=== PATIENT | male | born 1995 | race Caucasian/White ===

== ENCOUNTER 2025-07-08 22:51 | Emergency (ER) | payer OTHER, SELFPAY ==
--- NOTE | ~2025-07-08 | XR_ITS ---
Examination: XR chest 1V portable Clinical History: CLARITA Comparison: None Technique: Portable AP Findings: Heart size normal. Lungs clear. No acute bony abnormality. IMPRESSION: 1. No acute cardiopulmonary findings given portable technique. Reviewed, dictated and finalized at location [facility]
[2025-07-08 23:41] VITALS: BP 121/68; PULSE 84; RESP 18; TEMP 37.2; O2SAT 97
[2025-07-09 03:13] LABS: Influenza A QL RT-PCR Negative (Negative); Influenza B QL RT-PCR Negative (Negative); RSV RNA, RT-PCR Negative (Negative); SARS-CoV-2 RNA PCR Negative (Negative)
--- NOTE | 2025-07-09 03:20 | ED.SOB ---
HPI - SOB/Dyspnea General Chief Complaint: Shortness of Breath/Dyspnea Stated Complaint: Difficulty breathing Time Seen by Provider: 07/09/25 02:16 History of Present Illness HPI Narrative: 30-year-old otherwise healthy male presenting to the emergency department with shortness of breath. He describes the complaint as a burning with deep inhalation. States that he has had this symptom on off for last day. No sick contacts and a mild cough. Denies any fever chills. Denies any smoking history of vaping history. No chest pain, nausea, vomiting, fever, chills. States he had a sore throat as well. Was otherwise in his normal state of health recently. Has not tried any symptom controlling medications. No history of asthma or COPD. No history of lung issues in the past. No sick contacts at home. Related Data Allergies Allergy/AdvReac Type Severity Reaction Status Date / Time ADHESIVE BANDAGE Allergy Mild Uncoded 07/13/16 01:00 Review of Systems Review of Systems: As reviewed above in HPI All systems reviewed & are unremarkable except as noted in HPI and below Exam Narrative: GENERAL: [Well-appearing, well-nourished, and in no acute distress.] HEAD: [Normocephalic, atraumatic.] EYES: [PERRLA and EOMI.] ENT: Nares clear, no rhinorrhea or epistaxis. Mucous membranes moist. NECK: Supple. CHEST: [Clear to auscultation. No respiratory distress.] HEART: [Regular rate and rhythm]. No murmur heard. [Normal peripheral pulses.] ABDOMEN: [Soft, nondistended], [nontender], [No rigidity or guarding] EXTREMITIES: Normal range of motion. [No edema.] SKIN: Warm, dry, no rash. NEURO: [No focal deficits]. Alert and oriented [x3.] PSYCH: [Normal mood and affect.] Course Vital Signs Vital signs: Vital Signs Temperature 37.2 C 07/08/25 23:41 Pulse Rate 84 07/08/25 23:41 Respiratory Rate 18 07/08/25 23:41 Blood Pressure 121/68 07/08/25 23:41 Pulse Oximetry 97 07/08/25 23:41 Temperature 36.7 C 07/09/25 03:51 Pulse Rate 82 07/09/25 03:51 Respiratory Rate 18 07/09/25 03:51 Blood Pressure 124/70 07/09/25 03:51 Pulse Oximetry 100 07/09/25 03:51 [facility] Narrative Medical decision making narrative: 30-year-old otherwise healthy male presenting to the emergency department with shortness of breath. He describes the complaint as a burning with deep inhalation. States that he has had this symptom on off for last day. No sick contacts and a mild cough. Denies any fever chills. Denies any smoking history of vaping history. No chest pain, nausea, vomiting, fever, chills. States he had a sore throat as well. Was otherwise in his normal state of health recently. Has not tried any symptom controlling medications. No history of asthma or COPD. No history of lung issues in the past. No sick contacts at home. patient has clear breath sounds throughout all lung awan without any wheezing, tachypnea, dyspnea or restricted air entry. Vital signs are all normal without any fever tachycardia, tachypnea or hypoxemia. Normal blood pressure. Suspect bronchitis, less likely pneumonia, possibility of viral pneumonia, COVID, flu, RSV. Swabs obtained as well as chest x-ray which were all unremarkable. Patient will be treated symptomatically with anti-inflammatories and albuterol for suspected bronchitis / pleurisy. Given return precautions and safe for discharge. Differential Diagnosis Differential Diagnosis: Suspect bronchitis, less likely pneumonia, possibility of viral pneumonia, COVID, flu, RSV. Lab Data [facility] Lab Attestation statement: I personally reviewed the patient's lab results. Labs: Lab Results 07/09/25 Range/Units 02:34 Influenza A (RT-PCR) Negative (Negative) Influenza B (RT-PCR) Negative (Negative) RSV (RT-PCR) Negative (Negative) SARS-CoV-2 RNA (RT-PCR) Negative (Negative) Imaging Data My impression: No consolidations or pneumothorax Discharge Plan Discharge Clinical Impression: Acute bronchitis Patient Disposition: Home Condition: Stable Instructions: Antibiotic Form, Acute Bronchitis (ED) Additional Instructions: chest x-ray does not show any pneumonia. Negative for COVID, flu, RSV. Symptoms consistent with bronchitis or pleuritic chest pain secondary to the cold weather. We will treat this with an albuterol inhaler and anti-inflammatory prescription. Follow-up with regular doctor. Return with any emergent concerns at any time. No need for antibiotics at this time. Patient Language: Italian Prescriptions: New albuterol sulfate 90 mcg/actuation HFA aerosol inhaler 2 puff inhalation QID PRN (Reason: shortness of breath or wheezing) Qty: 8.5 0RF ibuprofen 600 mg tablet 600 mg PO TID PRN (Reason: pain) Qty: 20 0RF Follow-up/Referrals: PHYSICIAN,CERTIFIED ALCOHOL AND DRUG COUNSELOR [Primary Care Provider, Internal Medicine] Time of Disposition: 03:24
[2025-07-09 03:51] VITALS: BP 124/70; PULSE 82; RESP 18; TEMP 36.7; O2SAT 100
== END 2025-07-09 03:52 | disposition home or self-care (01) ==
PROVIDERS: Emergency Provider Student in an Organized Health Care Education/Training Program
DX: J40 Bronchitis, not specified as acute or chronic (principal); Z20.822 Contact with and (suspected) exposure to COVID-19
CPT/HCPCS: 71045; 87637; 99283